=== PATIENT | male | born 1960 | race Caucasian/White ===

== ENCOUNTER 2016-02-17 16:10 | Emergency (ER) | payer MEDICARE, MEDICAID, OTHER ==
[2016-02-17 16:33] VITALS: TEMP 97.6; BMI 22.8
[2016-02-17 16:43] LABS: AUTOMATED BASOPHIL 0.2 % (0-2); AUTOMATED LYMPH 33.5 % (17-44); AUTOMATED NEUTROPHIL 58.3 % (45-76)
[2016-02-17 16:52] LABS: LEUKOCYTES/URINE NEG (NEGATIVE); NITRITE/URINE NEG (NEGATIVE); URINE OCCULT BLOOD NEG (NEG/TRACE); WBC/URINE 0-2 (0-2)
[2016-02-17 17:01] LABS: BLOOD UREA NITROGEN < 2 MG/DL (9-20); CALC CORRECTED 9.4 MG/DL (8.4-10.2); CALCIUM 9.3 MG/DL (8.4-10.2); CALCULATED OSMOLALITY 270 MOs/Kg (270-290); CHLORIDE 104 mEq/L (98-107); GLUCOSE 236 MG/DL (70-99); SODIUM LEVEL 138 mEq/L (137-146); TOTAL PROTEIN 7.1 G/DL (6.3-8.2)
--- NOTE | 2016-02-17 17:35 | EDPRACDOC ---
- General Information Chief Complaint: Abdominal Pain Stated Complaint: UNABLE TO SWALLOW HASN'T ATE SINCE NOV Time Seen by Provider: 02/17/16 17:33 Mode Of Arrival: Car Home Medications: Home Medications Alprazolam [Xanax] 1 mg PO TID PRN #100 tablet 09/08/15 Aspirin 325 mg PO DAILYWM #100 tablet 09/08/15 Atorvastatin Calcium [Lipitor] 40 mg PO DAILY #30 tablet 09/08/15 Canagliflozin [Invokana] 300 mg PO DAILY #30 tablet 09/08/15 Carvedilol [Coreg] 3.125 mg PO BID #60 tablet 09/08/15 Clopidogrel Bisulfate [Plavix] 75 mg PO DAILY #30 tablet 09/08/15 Gabapentin [Neurontin] 300 mg PO TID #100 capsule 09/08/15 Lisinopril [Prinivil] 2.5 mg PO DAILY #30 tablet 09/08/15 MetFORMIN (Immediate Release) [GLUCOPHAGE Immed Release] 1,000 mg PO BID #60 tablet 09/08/15 Ranitidine HCl [Zantac] 300 mg PO HS #30 tablet 09/08/15 Tizanidine HCl [Zanaflex] 4 mg PO TID PRN #100 tablet 09/08/15 Trazodone HCl [Desyrel] 50 - 100 mg PO QHS PRN #30 tablet 09/08/15 Azithromycin [Zithromax] 250 mg PO DIR 02/17/16 Insulin Detemir [Levemir Flextouch] 25 unit SQ BID 02/17/16 Loxapine Succinate [Loxapine] 100 mg PO QHS 02/17/16 Ondansetron [Zofran Odt] 4 mg PO Q6H PRN #10 tab.rapdis 02/17/16 Oxycodone HCl [Oxycodone Immediate Release] 10 mg PO Q6H PRN 02/17/16 Promethazine [Phenergan] 25 mg [place] Q6H PRN #12 supp 02/17/16 Zolpidem Tartrate [Ambien] 10 mg PO QHS 02/17/16 Allergies/Adverse Reactions: Allergies Allergy/AdvReac Type Severity Reaction Status Date / Time Penicillins Allergy Anaphylaxis Verified 02/17/16 16:29 * - History of Present Illness Onset: today HPI: PT WITH TROUBLE SWALLOWING SINCE . SAW DR HIGUERA, FOUND NODULE ON TONSIL. PT REPORTS NEGATIVE ESOPHAGEAL CANCER. TODAY SYMPTOMS WORSE. STOPPED TAKING ANTIDEPRESSANTS BECAUSE OF DYSPHAGIA. HAD PANIC ATTACK TODAY. PT WITH N/V/DIARRHEA TODAY. NO ABD PAIN. STARTED AZITHROMYCIN TODAY BY DR HIGUERA. ED Past Medical History - Patient Medical History Neurological History: Denies: Seizures, Migraine Cardiac History: Reports: Coronary Artery Disease, Hypertension, Congestive Heart Failure (ECHO 04/20: EF 45-50%. SYSTOLIC + DIASTOLIC.), Heart Attack, Cardiac Catheterization (05/27/14: 2 stents in RCA; 1 in Left 1st diagonal. : stent in PDA), Stress Test, Hypercholesterolemia (with TG 675 in 2015.) Respiratory History: Reports: Asthma, COPD (used inhalers in past but said they did not help.), Emphysema. Denies: Bronchitis GI/ History: Reports: Gastroesophageal Reflux Musculoskeletal History: Reports: Arthritis (and chronic back pain with degenerative disc disease) Psychological History: Reports: Anxiety. Denies: Depression, Substance Use Disorder Systemic History: Reports: Diabetes (type 2. with peripheral neuropathy. Takes Levemir insulin.). Denies: Hyperthyroidism Surgical History: Reports: Cardiac Catheterization (05/27/14: 2 stents in RCA; 1 in Left 1st diagonal. 06/02/14: stent in PDA) - Family Medical History Reports: Hypertension, Diabetes, Cancer, Stroke, Cardiac Disorders (Father: [place].) - Social Medical History Smoking Status: Heavy tobacco smoker (5 or more cigarettes/day or daily pipe/ cigar) Social History: Denies: Substance Use Disorder EDM Review of Systems - Review of Systems ROS Negative Except as Marked: Yes All systems reviewed and were negative except as marked Respiratory: No Symptoms Reported Cardiovascular: No Symptoms Reported Genitourinary: No Symptoms Reported Neurological: No Symptoms Reported Musculoskeletal: No Symptoms Reported - Physical Exam Constitutional: Alert (Awake), No apparent distress Oriented to: Time, Person, Place Last recorded Vital Signs: Last Vital Signs Temp 97.6 F 02/17/16 16:30 Pulse 91 02/17/16 16:30 Resp 18 02/17/16 16:30 BP 159/75 02/17/16 16:30 Pulse Ox 95 02/17/16 16:30 Oxygen Pulse Oxygen Saturation 95 O2 Device Room Air Oxygen Flow Rate Fraction of Inspired Oxygen ( FIO2) - HEENT Head: Normal ( normocephalic) Eye Exam: Normal (PERRL, EOMI, Sclera white) Oropharynx: Normal (Pharynx:Moist without exudate,Gums-no swelling) Nose: No Symptoms Reported (septum midline) Neck: Normal (FROM, trachea at midline) - Respiratory/Cardiovascular Respiratory: Normal - CTA (BBS clear to auscultation without adventitious sounds ) Cardiovascular: Normal (RRR without murmur, gallop or rub) - GI Auscultation: Normal (NABS) Palpation: Normal (Soft,No rebound or guarding, non distended) Tenderness: Non tender Chowdhury's Sign: Negative - Musculoskeletal Back: Normal (Non-Tender) Extremities: Normal (Normal tone, Pulses 2+ No cyanosis or edema, FROM) - Integumentary Skin: Normal, Warm, Dry Lymphatics: Normal (no adenopathy) - Neurologic Memory Impaired: Normal Motor Function: Normal (Normal tone, Pulses 2+ No cyanosis or edema, FROM) Cranial Nerve: Normal (CN II-X11 intact sensation, strength 5/5) Cerebellar: Normal Mood Description: Normal Perception: Normal - Results 02/17/16 16:34 02/17/16 16:34 WBC 13.4 xk/uL (3.8-10.8) H 02/17/16 16:34 RBC 5.44 xM/uL (4.70-6.10) 02/17/16 16:34 Hgb 15.9 g/dL (14.0-18.0) 02/17/16 16:34 Hct 46.0 % (42-52) 02/17/16 16:34 MCV 85 fL (80-94) 02/17/16 16:34 MCH 29.2 pg (27-32) 02/17/16 16:34 MCHC 34.5 g/dl (33-36) 02/17/16 16:34 RDW 13.3 % (11.5-14.5) 02/17/16 16:34 Plt Count 187 xk/uL (130-400) 02/17/16 16:34 MPV 9.0 fL (7.4-10.4) 02/17/16 16:34 Neut % (Auto) 58.3 % (45-76) 02/17/16 16:34 Lymph % (Auto) 33.5 % (17-44) 02/17/16 16:34 [place] % (Auto) 6.0 % (3-10) 02/17/16 16:34 Eos % (Auto) 2.0 % (0-5) 02/17/16 16:34 Baso % (Auto) 0.2 % (0-2) 02/17/16 16:34 Absolute Neuts (auto) 7.77 xk/uL (1.7-8.2) 02/17/16 16:34 Absolute Lymphs (auto) 4.42 xk/uL (0.65-4.75) 02/17/16 16:34 Sodium 138 mEq/L (137-146) 02/17/16 16:34 Potassium 3.3 mEq/L (3.5-5.1) L 02/17/16 16:34 Chloride 104 mEq/L (98-107) 02/17/16 16:34 Carbon Dioxide 20 mMOL/L (22-33) L 02/17/16 16:34 Anion Gap 17 mEq/L (8-16) H 02/17/16 16:34 BUN < 2 MG/DL (9-20) L 02/17/16 16:34 Creatinine 0.50 MG/DL (0.66-1.25) L 02/17/16 16:34 Estimated GFR (MDRD) > 60 mL/min (>=60) 02/17/16 16:34 Glucose 236 MG/DL (70-99) H 02/17/16 16:34 Calculated Osmolality 270 MOs/Kg (270-290) 02/17/16 16:34 Calcium 9.3 MG/DL (8.4-10.2) 02/17/16 16:34 Corrected Calcium 9.4 MG/DL (8.4-10.2) 02/17/16 16:34 Total Bilirubin 0.4 MG/DL (0.2-1.3) 02/17/16 16:34 AST 19 IU/L (17-59) 02/17/16 16:34 ALT 22 IU/L (21-72) 02/17/16 16:34 Alkaline Phosphatase 103 IU/L (38-126) 02/17/16 16:34 Total Protein 7.1 G/DL (6.3-8.2) 02/17/16 16:34 Albumin 3.9 G/DL (3.5-5.0) 02/17/16 16:34 Lipase 79 U/L (23-300) 02/17/16 16:34 Urine Color Yellow 02/17/16 16:36 Urine Clarity Clear 02/17/16 16:36 Urine pH 7.0 (5.0-8.0) 02/17/16 16:36 Ur Specific [place] 1.005 (1.003-1.035) 02/17/16 16:36 Urine Protein Neg (NEG/TRACE) 02/17/16 16:36 Urine Glucose (UA) 3+ (NEGATIVE) 02/17/16 16:36 Urine Ketones Neg (NEGATIVE) 02/17/16 16:36 Urine Occult Blood Neg (NEG/TRACE) 02/17/16 16:36 Urine Nitrite Neg (NEGATIVE) 02/17/16 16:36 Urine Bilirubin Neg (NEGATIVE) 02/17/16 16:36 Urine Urobilinogen <2.0 MG/DL (0-1) 02/17/16 16:36 Ur Leukocyte Esterase Neg (NEGATIVE) 02/17/16 16:36 Urine WBC 0-2 (0-2) 02/17/16 16:36 Urine Mucus Occ (NEG/OCC) 02/17/16 16:36 Lab Results 02/17/16 02/17/16 02/17/16 16:36 16:34 16:34 WBC 13.4 H RBC 5.44 Hgb 15.9 Hct 46.0 MCV 85 MCH 29.2 MCHC 34.5 RDW 13.3 Plt Count 187 MPV 9.0 Neut % (Auto) 58.3 Lymph % (Auto) 33.5 [place] % (Auto) 6.0 Eos % (Auto) 2.0 Baso % (Auto) 0.2 Absolute Neuts (auto) 7.77 Absolute Lymphs (auto) 4.42 Sodium 138 Potassium 3.3 L Chloride 104 Carbon Dioxide 20 L Anion Gap 17 H BUN < 2 L Creatinine 0.50 L Estimated GFR (MDRD) > 60 Glucose 236 H Calculated Osmolality 270 Calcium 9.3 Corrected Calcium 9.4 Total Bilirubin 0.4 AST 19 ALT 22 Alkaline Phosphatase 103 Total Protein 7.1 Albumin 3.9 Lipase 79 Urine Color Yellow Urine Clarity Clear Urine pH 7.0 Ur Specific [place] 1.005 Urine Protein Neg Urine Glucose (UA) 3+ Urine Ketones Neg Urine Occult Blood Neg Urine Nitrite Neg Urine Bilirubin Neg Urine Urobilinogen <2.0 Ur Leukocyte Esterase Neg Urine WBC 0-2 Urine Mucus Occ Decision Time to Discharge: 17:58 - Departure Yes I personally saw and evaluated the patient. Disposition: Home Condition: Stable Final Diagnosis: Nausea Dysphagia Qualifiers: Dysphagia type: unspecified Qualified Code(s): R13.10 - Dysphagia, unspecified Diarrhea Qualifiers: Diarrhea type: unspecified type Qualified Code(s): R19.7 - Diarrhea, unspecified Instructions: Acute Diarrhea (ED) Education/Counseling Given To: Patient Education/Counseling Given Regarding: Diagnosis Referrals: None,No Provider [Primary Care Provider] - One Week
[2016-02-17] MEDS ORDERED: ONDANSETRON HCL 4 MG ODT TAB PO ONE (17:57)
[2016-02-17 18:15] VITALS: BP 138/74; PULSE 82
== END 2016-02-17 18:15 | disposition home or self-care (01) ==
LOC: ED 16:10
DX: R11.0 Nausea (principal); R13.10 Dysphagia, unspecified; R19.7 Diarrhea, unspecified
CPT/HCPCS: 36415; 80053; 81001; 83690; 85025; 99283; A9270; J3490

== ENCOUNTER → 2016-03-08 | Day surgery (SDC) | payer MEDICARE, MEDICAID ==
[2016-02-17 16:33] VITALS: BMI 22.8
[~2016-03-08] MED LIST: Albuterol/Ipratropium Neb 3 ML NEB NEB ONE; BUPIVACAINE 0.25%-EPINEPHRINE 1:200,000 30 ML ONE; FENTANYL 100 MCG/2 ML VIAL IV ONE; FENTANYL 100 MCG/2 ML VIAL IV PRN; HYDROmorphone 1 MG INJECTION IV PRN; LABETALOL 20 MG/4 ML SYRINGE IV PRN; LIDOCAINE 4% 5 ML AMPULE NEB ONE; MEPERIDINE 25 MG/ML TUBEX IV PRN; METHYLPREDNISOLONE 125 MG/2 ML VIAL ONE; MIDAZOLAM 2 MG/2 ML VIAL IV ONE; MORPHINE 10 MG/ML INJECTION IM ONE; ONDANSETRON HCL 4 MG ODT TAB PO PRN; ONDANSETRON HCL 4 MG/2 ML VIAL IV ONE; ONDANSETRON HCL 4 MG/2 ML VIAL IV PRN; PROMETHAZINE 25 MG/ML VIAL IV PRN; PROPOFOL 200 MG/20 ML VIAL IV ONE; ROCURONIUM 50 MG/5 ML VIAL IV ONE; SUCCINYLCHOLINE 20 MG/1 ML INJ 10 ML MDV IV ONE; hydrALAZINE 20 MG/ML VIAL IV PRN
--- NOTE | 2016-03-08 06:48 | SC.ANESPOS ---
[id number], Hemodynamically Stable, Pain Control Adequate Phase I & II Recovery Complete: Yes Apparent Anesthesia Complication: No : N - Vital Signs Blood Pressure: 152/67 Pulse: 88 Resp Rate: 16 O2 Sat: 96 Temp: 97.3 F
--- NOTE | 2016-03-08 07:14 | HIM.ANES ---
Anesthesia Evaluation & Plan Diagnoses: HYPERTROPHY OF TONSILS (03/08/16) - Focused Review of Systems Cardiac History: Yes: Hx Hypertension, Hx Angina, Hx Heart Attack, Hx Cardiac Catheterization (05/27/14: 2 stents in RCA; 1 in Left 1st diagonal. 06/02/14: stent in PDA), Hx Coronary Stent (3 stents 04/20), Hx Cardiac Disorders, Hx Abnormal Cholesterol/Hyperlipidemia, Hx Congestive Heart Failure (ECHO 04/20: EF 45-50%. SYSTOLIC + DIASTOLIC.) HEENT: Yes: Hx Dysphagia, Hx Deviated Septum, Hx Vision Problem (READING GLASSES ), Other HEENT Problems Hx Other HEENT Problems: TONSILAR MASS Respiratory: Yes: Hx Asthma, Hx Emphysema, Hx Chronic Obstructive Pulmonary Disease (COPD) (NEBULIZER), Hx Sleep Apnea (UNABLE TO USE CPAP), Hx Home O2 (2L NC NEEDED FOR SHORTNESS OF BREATH) Gastrointestinal: Yes: Hx Gastroesophageal Reflux Disease, Hx Gastrointestinal Disorders, Hx Colonoscopy (12/2015 NORMAL) Neurological/Musculoskeletal: Yes: Hx Back Pain (NERVE DAMAGE), Hx Numbness, Tingling, Weakness in Arms & Legs (SCIATIC NERVE PAIN), Hx Neurological Disorders No: Hx Seizures Other Neurological Problems: DIABETIC NERVE PAIN Psychological: Yes Hx Anxiety, Yes Hx Depression, Yes Hx Mental/Emotional Disorders HX Other Psyco/Soc Problems: INSOMNIA Endocrine: Yes: Hx Non-Insulin Dependent Diabetes, Hx Insulin Dependent Diabetes No: Hx Hyperthyroidism Blood/Autoimmune: No: Hx Blood Transfusions, Hx AIDS, Hx Hepatitis (type) Smoking Status: Heavy tobacco smoker (5 or more cigarettes/day or daily pipe/ cigar) Past Social History: Denies: Substance Use Disorder Hx Stress Test (date): Yes (09/08/2015 SMALL AREA OF POTENTIAL APICAL ISCHEMIA EF 50%) Hx Echocardiogram (date): Yes (04/2014 EF 45-50% INFERIOR LV WALL MOTION HYPOKENETIC.) - Focused Physical Exam Mallampati: Class II Thyromental Distance: Greater than 3 Dental: Removable Dental Work Cardiovascular/Chest: Normal Respiratory: Decreased breath sounds Any problems with anesthesia, including nausea and vomiting?: No Any relatives with a history of Malignant Hyperthermia?: No Beta Ada given (if appropriate): Yes (Took Coreg this AM) Does the patient have a history of Motion Sickness-: No Other: Problem List Problem Status Onset Acute coronary insufficiency syndrome Acute Acute coronary syndrome Acute Acute electrocardiogram changes Acute Cardiomyopathy Acute Chest pain Acute Decreased pedal pulses Acute Diabetes mellitus type 2, uncontrolled Acute Dyspnea Acute Hyponatremia Acute Obstructive chronic bronchitis Acute Right arm numbness Acute Type 2 diabetes mellitus with diabetic polyneuropathy Acute COPD (chronic obstructive pulmonary disease) Chronic Chronic combined systolic and diastolic CHF (congestive heart failure) Chronic Dyslipidemia Chronic Dyspnea on exertion Chronic Hypertension Chronic Obstructive sleep apnea Chronic Tobacco abuse Chronic Allergies Allergy/AdvReac Type Severity Reaction Status Date / Time Penicillins Allergy Anaphylaxis Verified 03/08/16 06:56 * Home Medications Medication Instructions Recorded Last Taken Type Aspirin 325 mg PO DAILYWM #100 tablet 09/08/15 02/17/16 Rx Carvedilol [Coreg] 3.125 mg PO BID #60 tablet 09/08/15 03/08/16 04:30 Rx Clopidogrel Bisulfate [Plavix] 75 mg PO DAILY #30 tablet 09/08/15 03/04/16 Rx Gabapentin [Neurontin] 300 mg PO TID #100 capsule 09/08/15 03/08/16 04:30 Rx Trazodone HCl [Desyrel] 50 - 100 mg PO QHS PRN #30 tablet 09/08/15 03/07/16 Rx Oxycodone HCl [Oxycodone Immediate 10 mg PO Q6H PRN 02/17/16 03/08/16 04:30 History Release] Zolpidem Tartrate [Ambien] 10 mg PO QHS 02/17/16 03/07/16 History Alprazolam [Xanax] 1 mg PO Q6 03/03/16 03/08/16 04:30 History Atorvastatin Calcium [Lipitor] 80 mg PO DAILY 03/03/16 03/07/16 History Canagliflozin [Invokana] 100 mg PO DAILY 03/03/16 03/07/16 History Cyclobenzaprine HCl [Flexeril] 10 mg PO Q6 PRN 03/03/16 Unknown History Duloxetine HCl [Cymbalta] 120 mg PO DAILY 03/03/16 2 Days Ago History Glimepiride 4 mg PO DAILY 03/03/16 03/07/16 History MetFORMIN (Immediate Release) 500 mg PO BID 03/03/16 03/08/16 04:30 History [GLUCOPHAGE Immed Release] Ondansetron [Zofran Odt] 8 mg PO TID PRN 03/03/16 03/03/16 08:00 History Height and Weight Patient's height 6 ft 2 in Patient's weight 177 lb BMI 22.8 Vital Signs Temperature 97.2 F L 03/08/16 07:00 Pulse Rate 78 03/08/16 07:00 Respiratory Rate 18 03/08/16 07:00 Blood Pressure 128/64 03/08/16 07:00 Pulse Oxygen Saturation 93 03/08/16 07:00 - Anesthetic Plan Anesthesia Type: General ASA Class: 4 -: I have examined this patient and reviewed the medical record. The patient has been assessed prior to anesthesia. Risks and benefits of anesthesia and anesthetic technique options have been discussed and all questions answered. The patient accepts the risk and desires me to proceed with the planned anesthetic.
--- NOTE | 2016-03-08 08:18 | HIMOPRPT ---
DATE OF PROCEDURE: 03/08/16 PREOPERATIVE DIAGNOSES: 1. Chronic throat pain. 2. Asymmetric hypertrophy of tonsils, neoplasm cannot be ruled out, right greater than left. 3. Smoking history. 4. Alcohol use history. POSTOPERATIVE DIAGNOSES: 1. Chronic throat pain. 2. Asymmetric hypertrophy of tonsils, neoplasm cannot be ruled out, right greater than left. 3. Smoking history. 4. Alcohol use history. PROCEDURES: 1. Tonsillectomy. 2. Direct laryngoscopy. SURGEON: William Edwards DO. ANESTHESIA: General endotracheal with 0.25% Marcaine and 1:200,000 epinephrine local injection. ESTIMATED BLOOD LOSS: None. COMPLICATIONS: None. SPECIMEN REMOVED: Bilateral tonsils. ANESTHESIOLOGIST: Dr. Ruiz. ASSISTANTS: None. WOUND CLASSIFICATION: II. FLUID REPLACEMENT: Approximately 1000 mL of lactated Ringer. DRAINS: None. PACKING: None. OPERATIVE FINDINGS: Bilateral tonsils were moderately hypertrophic, erythematous, and mildly inflamed/ulcerated. The right tonsil was appreciably larger compared to the left, 3+. The base of tongue, vallecula, bilateral piriform sinuses all demonstrated normal appearing mucosa, without mucosal lesions, ulcerations, or masses. INDICATIONS: This patient is a 55-year-old male who presented to my office for evaluation of chronic sore throats for several months. The patient has a history of chronic smoking and alcohol use. He also notes symptoms of dysphagia , and was originally scheduled with sewing line baler for EGD. However, the patient canceled his procedure. A subsequent modified barium swallow study was ordered by his sewing line baler, which was unremarkable. Examination in the office demonstrated asymmetry of his tonsils, right greater than left, with mild to moderate erythema, inflammation, and questionable mucosal ulcerations. Options were reviewed and discussed with the patient. He is here today for elective tonsillectomy to rule out tonsillar neoplasm, and direct laryngoscopy to further evaluate his hypopharynx. PROCEDURE IN DETAIL: All risks, benefits, potential complications, and alternatives were reviewed and discussed with the patient. All of the patient's questions and concerns were fully answered and addressed. Consent was signed and charted. The patient was identified in the preoperative holding area, and brought to the operating room and placed on the operating table in supine position. General endotracheal anesthesia was administered by the anesthesiologist. Once the airway was secured, the patient and the table were then turned 90 degrees. A shoulder roll was placed. The patient was then prepped and draped in the usual sterile fashion as appropriate for tonsillectomy and direct laryngoscopy procedure. Dental guard was placed to protect his upper alveolar ridge and gingiva. A rigid laryngoscope was placed in the oral cavity. The scope was then advanced distally to the base of tongue, vallecular region, the right piriform sinus, and lastly the left piriform sinus. Evaluation of mucosa in these areas were made, and appeared to be normal. The rigid laryngoscope was then removed. The dental guard was also removed. A Alex-Jason mouth gag with a large-sized tongue retractor was placed in the oral cavity. The tongue and mandible were retracted anteriorly. This device was then suspended to the Benites stand. The curved Allis clamp was used to grasp the left tonsil. With constant medial traction, this tonsil was resected from the tonsillar fossa. The dissection was performed from the superior to the inferior pole along the subcapsular plane. Minimal oozing was noted from the inferior tonsillar fossa, and easily controlled with the electric Bovie cautery. The Allis clamp was now used to grasp the right tonsil. With constant medial traction, this tonsil was resected from the tonsillar fossa. The dissection was performed from the superior to the inferior pole along the subcapsular plane. Minimal oozing was noted from the mid and lateral edge of the fossa and easily controlled with the electric Bovie cautery. Each tonsillar fossa was then infiltrated with approximately 4 mL of 0.25% Marcaine in 1:200,000 epinephrine local injection. No bleeding or oozing was noted from the injection sites. The tongue retractor was taken off the Benites stand to allow reperfusion back to the tongue, as well as taking tension off of the tonsillar fossa. The tongue retractor was resuspended. Re-evaluation in the tonsillar fossa did not reveal any bleeding or oozing. An orogastric tube was placed and stomach contents were then suctioned away. The orogastric tube was removed. The tongue retractor was taken off of the Benites stand and removed from the oral cavity along with the Alex-Jason mouth gag. The patient tolerated the procedure. There were no complications. The shoulder roll was removed. The patient and the table were then turned back to the anesthesiologist. The patient was subsequently awakened and extubated by the anesthesiologist and brought out to the recovery area in satisfactory condition.
[2016-03-08 09:35] VITALS: TEMP 97.3
[2016-03-08 10:37] VITALS: PULSE 88
[2016-03-08 13:20] VITALS: BP 152/67
== END ==
LOC: SDC 06:06
PROVIDERS: ATTEND Otolaryngology Facial Plastic Surgery
PROC: 0CTPXZZ Resection of Tonsils, External Approach (ICD-10-PCS; principal; 2016-03-08 07:15)
DX: J35.1 Hypertrophy of tonsils (principal); I10 Essential (primary) hypertension; I25.2 Old myocardial infarction; I50.40 Unspecified combined systolic (congestive) and diastolic (congestive) heart failure; I25.10 Atherosclerotic heart disease of native coronary artery without angina pectoris; E11.9 Type 2 diabetes mellitus without complications; E78.5 Hyperlipidemia, unspecified; J45.909 Unspecified asthma, uncomplicated; J43.9 Emphysema, unspecified; G47.30 Sleep apnea, unspecified; K21.9 Gastro-esophageal reflux disease without esophagitis; F41.9 Anxiety disorder, unspecified; F31.9 Bipolar disorder, unspecified; G47.00 Insomnia, unspecified; F17.210 Nicotine dependence, cigarettes, uncomplicated; Z79.84 Long term (current) use of oral hypoglycemic drugs; Z79.899 Other long term (current) drug therapy; Z95.5 Presence of coronary angioplasty implant and graft
CPT/HCPCS: 42826; 82962; 94640; J0330; J2270; J2405; J2550; J2930; J3010; J3490; J7620; J2250